=== PATIENT | female | born 1965 | race Caucasian/White ===

== ENCOUNTER → 2024-09-27 | Outpatient (CLI) | payer MEDICARE ==
--- NOTE | 2024-09-29 09:43 | MR ---
EXAMINATION TYPE: MR cervical spine wo con DATE OF EXAM: 09/27/2024 9:54 AM COMPARISON: None. CLINICAL INDICATION: Female, 59 years old with history of M54.2 CERVICALGIA, Neck pain with bilateral radiculopathy, stiffness, spasms, history of injury thrown from horse at 16 years old. TECHNIQUE: Multiplanar MultiSpin echo imaging of the cervical spine was performed. Patient motion li mits evaluation. FINDINGS: C2-C3: No evidence for degenerative disc disease. No disc bulge/herniation or protrusion. No Canal stenosis. Foramina are patent bilaterally. C3-C4: No evidence for degenerative disc disease. No disc bulge/herniation or protrusion. No Canal stenosis. Foramina are patent bilaterally. C4-C5: Mild disc desiccation posterior disc bulge. Mild effacement of ventral thecal sac. No michael ce ntral stenosis. Moderate left foraminal encroachment secondary to degenerative change of the cervical apophyseal joints. C5-C6: Severe disc desiccation with moderate posterior disc bulge and possible subligamentous herniat ion. Moderate effacement and ventral thecal sac with moderate central stenosis. Bilateral foraminal e ncroachment. C6-C7: Severe disc desiccation with moderate posterior disc bulge and possible subligamentous herniat ion. Mild effacement and ventral thecal sac with mild central stenosis. Bilateral foraminal encroachm ent. C7-T1: No evidence for degenerative disc disease. No disc bulge/herniation or protrusion. No Canal stenosis. Foramina are patent bilaterally. Cervical segments are intact. There is normal alignment. Cervical spinal cord is of normal signal. Craniovertebral junction relationships are within normal limits. IMPRESSION: 1. Degenerative disc disease as outlined above with central stenosis at C5-6 and C6-7. [facility], , 09/29/2024 9:41 AM
== END | disposition home or self-care (01) ==
LOC: RADMRIMAIN 08:41
PROVIDERS: ATTEND Orthopaedic Surgery Orthopaedic Surgery of the Spine
DX: M48.02 Spinal stenosis, cervical region (principal); M50.322 Other cervical disc degeneration at C5-C6 level
CPT/HCPCS: 72141